=== PATIENT | male | born 1990 | race Caucasian/White ===

== ENCOUNTER 2017-01-08 13:27 | Emergency (ER) | payer SELFPAY ==
[2017-01-08 14:09] VITALS: BP 141/97
--- NOTE | 2017-01-08 17:58 | Emergency Department Report ---
HPI - General Chief Complaint: Dental/Oral Time Seen by Provider: 01/08/17 17:16 - HPI HPI: 26-year-old male presents today with left lower wisdom toothache 2 days. Describes his pain as 10 out of 10 constant, throbbing ache. Denies history of similar symptoms or having a dentist to follow-up with. Tried BC powder and Orajel with minimal relief. Denies fever, chills, nausea, vomiting, chest pain , shortness of breath, abdominal pain, headache, ear pain. ED Past Medical Hx - Past Medical History Previous Medical History?: No - Surgical History Past Surgical History?: No - Social History Smoking Status: Current Every Day Smoker Substance Use Type: Alcohol, Non Opiate Pain, Other - Medications Home Medications: Home Medications Medication Instructions Recorded Confirmed Last Taken Type Acetaminophen/Codeine [Tylenol #3] 1 tab PO Q6H PRN #20 tab 01/08/17 Unknown Rx Penicillin Vk [Veetids TAB] 500 mg PO QID #56 tablet 01/08/17 Unknown Rx ED Review of Systems ROS: Stated complaint: TOOTHACHE,GUMS SWOLLEN Other details as noted in HPI Constitutional: denies: chills, fever, malaise Eyes: denies: eye pain ENT: dental pain. denies: ear pain, throat pain, congestion Respiratory: denies: cough, shortness of breath, wheezing Cardiovascular: denies: chest pain, palpitations Endocrine: no symptoms reported Gastrointestinal: denies: abdominal pain, nausea, vomiting Neurological: denies: headache, weakness Physical Exam - Physical Exam Vital Signs: Vital Signs 01/08/17 14:06 Temperature 99 F Pulse Rate 94 H Respiratory 18 Rate Blood Pressure 141/97 O2 Sat by Pulse 100 Oximetry Physical Exam: GENERAL: The patient is well-developed and well-nourished. Patient is in NAD. HEAD: Normocephalic. Atraumatic. EYES: PERRL. EARS: External auditory canals and tympanic membranes clear; hearing grossly intact. NOSE: Normal nasal mucosa with no nasal discharge. THROAT: No erythema, swelling or exudates. DENTAL: Tenderness to palpation of tooth #17. Positive for edema. No abscess, drainage or bleeding noted. NECK: Supple, nontender, without lymphadenopathy. CHEST/LUNGS: Clear to auscultation throughout. HEART/CARDIOVASCULAR: Regular rate and rhythm. No murmurs, rubs or gallops. ABDOMEN: Abdomen is soft, nontender. Bowel sounds normoactive. No guarding or rebound tenderness. EXTREMITIES: Peripheral pulses intact. Capillary refill less than 2 seconds. NEURO: Alert and oriented x 3. Normal gait. ED Course Vital Signs 01/08/17 14:06 Temperature 99 F Pulse Rate 94 H Respiratory 18 Rate Blood Pressure 141/97 O2 Sat by Pulse 100 Oximetry ED Medical Decision Making - Lab Data Vital Signs 01/08/17 14:06 Temperature 99 F Pulse Rate 94 H Respiratory 18 Rate Blood Pressure 141/97 O2 Sat by Pulse 100 Oximetry - Medical Decision Making 26-year-old male presents today with left lower toothache 2 days. Patient was given [place] for pain relief. He will be provided with a referral for dentist. Patient is in no acute distress at this time. He will be discharged home and is encouraged to follow up with a primary care provider. He will be sent home on penicillin VK and Tylenol 3 and is encouraged to return to the emergency room for any worsening symptoms. Critical care attestation.: If time is entered above; I have spent that time in minutes in the direct care of this critically ill patient, excluding procedure time. ED Disposition Clinical Impression: Toothache Disposition: DISCHARGED TO HOME OR SELFCARE Is pt being admited?: No Does the pt Need Aspirin: No Condition: Stable Instructions: Dental Abscess (ED), Toothache (ED) Additional Instructions: Follow-up with primary care provider and dentist. Return to the emergency department if symptoms worsen. Prescriptions: Acetaminophen/Codeine [Tylenol #3] 1 tab PO Q6H PRN #20 tab PRN Reason: Pain Penicillin Vk [Veetids TAB] 500 mg PO QID #56 tablet Referrals: PRIMARY CAREMD [Primary Care Provider] - 3-5 Days Benja Morrison [Other] - 3-5 Days Forms: Work/School Release Form(ED), Accompanied Note Time of Disposition: 17:57
[2017-01-08] MEDS: NORCO 5/325 PO ONE (18:01)
== END 2017-01-08 18:12 | disposition home or self-care (01) ==
LOC: ED 13:27
DX: K08.89 Other specified disorders of teeth and supporting structures (principal); Z53.21 Procedure and treatment not carried out due to patient leaving prior to being seen by health care provider

== ENCOUNTER 2017-11-03 21:37 | Emergency (ER) | payer OTHER ==
[2017-11-03 21:59] VITALS: BP 105/72
--- NOTE | 2017-11-04 00:30 | XRay Report ---
FINAL REPORT PROCEDURE: XR FINGER(S) 2+V LT TECHNIQUE: RIGHT hand radiographs, AP and lateral views. CPT 50128-QF HISTORY: lt finger (3rd 4th) laceration COMPARISON: No prior studies are available for comparison. FINDINGS: Fracture (s) and/or Dislocation(s): None . Alignment: Normal . Joint space(s): Normal . Soft tissues: Normal . Bone mineralization: Normal . Foreign bodies: None . IMPRESSION: Normal Examination .
[2017-11-04] MEDS ORDERED: NORCO 5/325 PO ONE (04:32)
[2017-11-04] MEDS ORDERED: NORCO 5/325 ONE (04:32)
--- NOTE | 2017-11-04 05:11 | Emergency Department Report ---
- General Chief Complaint: Wound/Laceration Stated Complaint: LEFT FINGER LACERATION Time Seen by Provider: 11/04/17 04:38 Source: patient Mode of arrival: Ambulatory Limitations: No Limitations - History of Present Illness Initial Comments: 27-year-old male past medical history none presents with complaint of laceration to left middle finger and left index finger pad. Patient states he was cutting a piece of wood with a saw at home his hand slipped and he experienced laceration at proximal interphalangeal joint left middle finger and distal left index finger pad. Patient denies any other injuries. Patient is visibly moving his fingers without difficulty. Visible laceration at the sites and multiple small abrasions. Patient states his tetanus vaccine is up-to-date as of 2 years ago. -: This evening Extremity Location: Left: Hand Patient Tetanus UTD: Yes (2014) Context: accidental, sharp object use, power tool use Associated Symptoms: pain - Related Data Previous Rx's Medication Instructions Recorded Last Taken Type Acetaminophen/Codeine [Tylenol #3] 1 tab PO Q6H PRN #20 tab 01/08/17 Unknown Rx Penicillin Vk [Veetids TAB] 500 mg PO QID #56 tablet 01/08/17 Unknown Rx Acetaminophen/Codeine [Tylenol 1 tab PO Q6H PRN #12 tab 11/04/17 Unknown Rx /Codeine # 3 tab] Bacitracin Zinc Oint [Antibiotic 1 applicatio TP BID #1 tube 11/04/17 Unknown Rx Oint] Cephalexin [Keflex] 500 mg PO Q12HR #14 cap 11/04/17 Unknown Rx Ibuprofen [Motrin] 800 mg PO Q8HR PRN #30 tablet 11/04/17 Unknown Rx Allergies Allergy/AdvReac Type Severity Reaction Status Date / Time No Known Allergies Allergy Verified 11/03/17 21:52 ED Review of Systems ROS: Stated complaint: LEFT FINGER LACERATION Other details as noted in HPI Constitutional: denies: chills, fever Eyes: denies: eye pain, eye discharge, vision change ENT: denies: ear pain, throat pain Respiratory: denies: cough, shortness of breath, wheezing Cardiovascular: denies: chest pain, palpitations Endocrine: no symptoms reported Gastrointestinal: denies: abdominal pain, nausea, diarrhea Genitourinary: denies: urgency, dysuria Musculoskeletal: as per HPI. denies: back pain, joint swelling, arthralgia Skin: denies: rash, lesions Neurological: denies: headache, weakness, paresthesias Psychiatric: denies: anxiety, depression Hematological/Lymphatic: denies: easy bleeding, easy bruising ED Past Medical Hx - Past Medical History Previous Medical History?: No - Surgical History Past Surgical History?: No - Social History Smoking Status: Current Every Day Smoker Substance Use Type: Alcohol - Medications Home Medications: Home Medications Medication Instructions Recorded Confirmed Last Taken Type Acetaminophen/Codeine [Tylenol #3] 1 tab PO Q6H PRN #20 tab 01/08/17 Unknown Rx Penicillin Vk [Veetids TAB] 500 mg PO QID #56 tablet 01/08/17 Unknown Rx Acetaminophen/Codeine [Tylenol 1 tab PO Q6H PRN #12 tab 11/04/17 Unknown Rx /Codeine # 3 tab] Bacitracin Zinc Oint [Antibiotic 1 applicatio TP BID #1 tube 11/04/17 Unknown Rx Oint] Cephalexin [Keflex] 500 mg PO Q12HR #14 cap 11/04/17 Unknown Rx Ibuprofen [Motrin] 800 mg PO Q8HR PRN #30 tablet 11/04/17 Unknown Rx ED Physical Exam - General Limitations: No Limitations General appearance: alert, in no apparent distress - Head Head exam: Present: atraumatic, normocephalic - Eye Eye exam: Present: normal appearance, PERRL, EOMI - ENT ENT exam: Present: mucous membranes moist - Neck Neck exam: Present: normal inspection - Respiratory Respiratory exam: Present: normal lung sounds bilaterally. Absent: respiratory distress - Cardiovascular Cardiovascular Exam: Present: regular rate, normal rhythm. Absent: systolic murmur, diastolic murmur, rubs, gallop - GI/Abdominal GI/Abdominal exam: Present: soft, normal bowel sounds - Rectal Rectal exam: Present: deferred - Extremities Exam Extremities exam: Present: normal inspection - Expanded Upper Extremity Exam Left Shoulder Exam: Present: normal inspection, full ROM Upper Arm exam: Present: normal inspection, full ROM Elbow exam: Present: normal inspection, full ROM Forearm Wrist exam: Present: normal inspection, full ROM Hand Wrist exam: Present: normal inspection, full ROM (range of motion DIP PIP and MCP fully intact all fingers left hand) Hand L/R Front: 1 - Positive: laceration (laceration here) 2 - Positive: laceration (laceration here) Neuro motor exam: Present: wrist extension intact, thumb opposition intact, thumb IP flexion intact, thumb adduction intact, fingers 2-5 abduction intact Neurosensory exam: Present: radial nerve intact Vascular: Present: normal capillary refill (distal capillary refill less than 1 second), radial pulse (distal radial brachial and ulnar pulses strong to palpation left hand and wrist), brachial pulse, ulnar pulse - Back Exam Back exam: Present: normal inspection - Neurological Exam Neurological exam: Present: alert, oriented X3, CN II-XII intact, normal gait - Psychiatric Psychiatric exam: Present: normal affect, normal mood - Skin Skin exam: Present: warm, dry, intact, normal color. Absent: rash ED Course Vital Signs 11/03/17 21:52 Temperature 97.4 F L Pulse Rate 92 H Respiratory 16 Rate Blood Pressure 105/72 Blood Pressure 105/72 [Right] O2 Sat by Pulse 95 Oximetry - Laceration /Wound Repair Left Distal Finger Wound Location: upper extremity (left distal indcex and middle fingers) Wound Length (cm): 4 Wound's Depth, Shape: linear Wound Explored: clean Irrigated w/ Saline (ccs): 1,000 Betadine Prep?: Yes Anesthesia: 1% Lidocaine Volume Anesthetic (ccs): 6 Wound Debrided: minimal Wound Repaired With: sutures Suture Size/Type: 5:0, proline Number of Sutures: 5 Layer Closure?: Yes Sterile Dressing Applied?: Yes Progress: Digital block performed. 7 sutures placed at site of laceration with good approximation. No discernible tendon injury as finger flexion and extension is fully intact in all joints. Minimal bleeding procedure tolerated well covered with gauze triple antibiotic ointment and finger splint afterward ED Medical Decision Making - Medical Decision Making A/P: left fingers laceration 1-sutures to be removed in 7-10 days 2-tetanus up to date as of 2014 3-Motrin when necessary, triple antibiotic ointment, short course Tylenol 3, Keflex twice a day 7 days. X-ray shows no fracture finger 4-pt advised to return to the ED for any fevers chills pus drainage erythema at site of laceration 5- no neurovascular injury to left index or middle finger range of motion fully intact on clinical exam with good distal capillary refill and good distal sensation Critical care attestation.: If time is entered above; I have spent that time in minutes in the direct care of this critically ill patient, excluding procedure time. ED Disposition Clinical Impression: Finger laceration Qualifiers: Encounter type: initial encounter Finger: middle finger Damage to nail status: without damage Foreign body presence: without foreign body Laterality: left Qualified Code(s): S61.213A - Laceration without foreign body of left middle finger without damage to nail, initial encounter Abrasion of finger of left hand Qualifiers: Encounter type: initial encounter Qualified Code(s): S60.419A - Abrasion of unspecified finger, initial encounter Disposition: TO HOME OR SELFCARE Is pt being admited?: No Does the pt Need Aspirin: No Condition: Stable Instructions: Finger Laceration (ED), Abrasion (ED), Suture Care (ED), Laceration (ED) Additional Instructions: Sutures to be removed in 7-10 days Prescriptions: Acetaminophen/Codeine [Tylenol /Codeine # 3 tab] 1 tab PO Q6H PRN #12 tab PRN Reason: Pain Bacitracin Zinc Oint [Antibiotic Oint] 1 applicatio TP BID #1 tube Cephalexin [Keflex] 500 mg PO Q12HR #14 cap Ibuprofen [Motrin] 800 mg PO Q8HR PRN #30 tablet PRN Reason: Pain Referrals: [facility] [Outside] - 3-5 Days [facility] [Outside] - 3-5 Days Forms: Accompanied Note, Work/School Release Form(ED) Time of Disposition: 06:02
[2017-11-04] MEDS ORDERED: TRIPLE ANTIBIOTIC TP ONE (06:01)
== END 2017-11-04 06:10 | disposition home or self-care (01) ==
LOC: ED 21:37
DX: S61.213A Laceration without foreign body of left middle finger without damage to nail, initial encounter (principal); F17.200 Nicotine dependence, unspecified, uncomplicated; W29.8XXA Contact with other powered hand tools and household machinery, initial encounter; Y93.89 Activity, other specified; Y99.8 Other external cause status; Y92.009 Unspecified place in unspecified non-institutional (private) residence as the place of occurrence of the external cause
CPT/HCPCS: A6250